=== PATIENT | female | born 1995 | race Caucasian/White ===

== ENCOUNTER 2023-10-30 12:43 | Outpatient (CLI) | payer OTHER, SELFPAY | END 2023-10-30 12:44 | disposition home or self-care (01) | PROVIDERS: Visit Provider Obstetrics & Gynecology | DX: R63.5 Abnormal weight gain (principal); L68.0 Hirsutism | CPT/HCPCS: 80061; 82627; 83498; 84270; 84402; 84403; 84443 ==